=== PATIENT | female | born 1935 | race Caucasian/White ===

== ENCOUNTER 2018-03-01 01:48 | Inpatient (IN) | payer OTHER, BC ==
--- NOTE | 2018-03-01 02:30 | PDOC ---
History of Present Illness - General History Source: Patient, Family Exam Limitations: No Limitations - History of Present Illness Initial Comments: 03/01/18 03:31 Patient is an 82 year old female with a significant past medical history of Osteoporosis, scoliosis, HTN, Hypothyroidism, Diabetes, who presents to the ED with complaints of right ankle pain, s/p fall that occurred just prior to ED arrival. Patient reports walking down the steps in her home when she twisted her foot on the step causing her to lose her balance and fall landing on the last step followed by the floor. She reports experiencing associated left knee pain secondary to fall. Patient reports currently experiencing ache from her left ankle but state pain does increase if she attempts to move it in any way. Denies chest pain, Sob. Denies nausea, vomiting. Denies fevers, chills. Denies head trauma, change in vision. Denies any other symptoms. Allergies: None Social history: Lives with . No alcohol. No illicit drugs. Surgical history: None PMD: Dr. Hess <Talon Solomon - Last Filed: 03/01/18 03:31> <Arianna Soriano - Last Filed: 03/01/18 06:16> - General Chief Complaint: Injury Stated Complaint: ANKLE PAIN Time Seen by Provider: 03/01/18 02:12 Past History <Talon Solomon - Last Filed: 03/01/18 03:31> - Past Medical History COPD: No Diabetes: Yes HTN: Yes Thyroid Disease: Yes (Hyperthyrodism) - Immunization History Immunization Up to Date: Yes - Suicide/Smoking/Psychosocial Hx Smoking History: Former smoker Have you smoked in the past 12 months: No If you are a former smoker, when did you quit?: 33 years ago Information on smoking cessation initiated: No Hx Alcohol Use: Yes (Socially) Drug/Substance Use Hx: No <Arianna Soriano - Last Filed: 03/01/18 06:16> - Past Medical History Allergies/Adverse Reactions: Allergies Allergy/AdvReac Type Severity Reaction Status Date / Time No Known Allergies Allergy Verified 03/01/18 02:30 Home Medications: Ambulatory Orders Atorvastatin Ca [Lipitor] 20 mg PO HS 03/01/18 B12/Levomefolate Calcium/B-6 [Folbic Rf Tablet] 1 each PO DAILY 03/01/18 Cholecalciferol (Vitamin D3) [Vitamin D3 -] 1,000 unit PO DAILY 03/01/18 Levothyroxine [Synthroid -] 112 mcg PO DAILY 03/01/18 Losartan Potassium [Cozaar] 25 mg PO DAILY 03/01/18 Metoprolol Succinate [Toprol Xl -] 50 mg PO DAILY 03/01/18 Home-3/Dha/Epa/Fish Oil [Fish Oil 500 mg Softgel] 1 each PO DAILY 03/01/18 Pantoprazole Sodium [Protonix] 40 mg PO DAILY 03/01/18 Sitagliptin Phosphate [Januvia] 100 mg PO DAILY 03/01/18 Review of Systems - Review of Systems Able to Perform ROS?: Yes Comments:: 03/01/18 03:31 GENERAL/CONSTITUTIONAL: No fever or chills. No weakness. HEAD, EYES, EARS, NOSE AND THROAT: No change in vision. No ear pain or discharge. No sore throat. CARDIOVASCULAR: No chest pain or shortness of breath. RESPIRATORY: No cough, wheezing, or hemoptysis. GASTROINTESTINAL: No nausea, vomiting, diarrhea or constipation. GENITOURINARY: No dysuria, frequency, or change in urination. MUSCULOSKELETAL: +Right ankle pain. +left knee pain. No neck or back pain. SKIN: No rash NEUROLOGIC: No headache, vertigo, loss of consciousness, or change in strength/ sensation. ENDOCRINE: No increased thirst. No abnormal weight change. HEMATOLOGIC/LYMPHATIC: No anemia, easy bleeding, or history of blood clots. ALLERGIC/IMMUNOLOGIC: No hives or skin allergy. <Talon Solomon - Last Filed: 03/01/18 03:31> *Physical Exam - Vital Signs Last Vital Signs Temp Pulse Resp BP Pulse Ox 97.8 F 90 16 157/80 95 03/01/18 01:59 03/01/18 01:59 03/01/18 01:59 03/01/18 01:59 03/01/18 01:59 - Physical Exam Comments: 03/01/18 03:31 GENERAL: Awake, alert, and fully oriented, in no acute distress HEAD: No signs of trauma EYES: PERRLA, EOMI, sclera anicteric, conjunctiva clear ENT: Auricles normal inspection, hearing grossly normal, nares patent, oropharynx clear without exudates. Moist mucosa NECK: Normal ROM, supple, no lymphadenopathy, JVD, or masses LUNGS: Breath sounds equal, clear to auscultation bilaterally. No wheezes, and no crackles HEART: Regular rate and rhythm, normal S1 and S2, no murmurs, rubs or gallops ABDOMEN: Soft, nontender, normoactive bowel sounds. No guarding, no rebound. No masses EXTREMITIES: +Distal right tib fib swelling,bruising with obvious deformity. + Right leg distal pulses intact. Normal range of motion, no edema. No clubbing or cyanosis. No cords, erythema, or tenderness NEUROLOGICAL: Cranial nerves II through XII grossly intact. Normal speech, normal gait SKIN: Warm, Dry, normal turgor, no rashes or lesions noted. <Talon Solomon - Last Filed: 03/01/18 03:31> - Vital Signs Last Vital Signs Temp Pulse Resp BP Pulse Ox 97.8 F 90 16 157/80 95 03/01/18 01:59 03/01/18 01:59 03/01/18 01:59 03/01/18 01:59 03/01/18 01:59 <Arianna Soriano - Last Filed: 03/01/18 06:16> ED Treatment Course - Medications Given in the ED: ED Medications Discontinued Medications Generic Name Dose Route Start Last Admin Trade Name Freq PRN Reason Stop Dose Admin Oxycodone/Acetaminophen 2 combo 03/01/18 02:53 03/01/18 03:02 Percocet 5/325 - PO 03/01/18 02:54 2 combo ONCE ONE Administration <Talon Solomon - Last Filed: 03/01/18 03:31> - LABORATORY CBC & Chemistry Diagram: 03/01/18 04:14 03/01/18 04:14 <Arianna Soriano - Last Filed: 03/01/18 06:16> Medical Decision Making - Medical Decision Making 03/01/18 05:18 Pt slipped on the 2nd to last step in her home, and she twisted her right ankle and fell onto her left knee. Pt has comminuted right ankle tib/fib distal aspect that will require ORIF. Pt has a swollen left knee, byt XR of knee is normal. Preop labs done and ekg completed. Pt will be admitted to her PMD [facility]. 03/01/18 06:15 Dr. Wetzel is covering Dr. Hess, and Hospitalists are covering Dr. Wetzel. Pt will go to med surg floor. I placd a consult for ortho construction project manager to see the patient. <Arianna Soriano - Last Filed: 03/01/18 06:16> *DC/Admit/Observation/Transfer - Attestations Scribe Attestion: 03/01/18 03:32 Documentation prepared by Talon Solomon, acting as certified medical records coder for Arianna Soriano MD/DO. <Talon Solomon - Last Filed: 03/01/18 03:31> - Discharge Dispostion Admit: Yes <Arianna Soriano - Last Filed: 03/01/18 06:16> Diagnosis at time of Disposition: Nondisplaced comminuted fracture of shaft of right fibula, Nondisplaced comminuted fracture of shaft of left tibia - Discharge Dispostion Condition at time of disposition: Guarded
[2018-03-01 02:55] VITALS: BMI 24.5
[2018-03-01 04:25] LABS: BASO % 0.4 % (0-2.0); EOS % 0.2 % (0-4.5); HEMATOCRIT 42.2 % (32.4-45.2); HEMOGLOBIN 14.5 GM/dL (10.7-15.3); LYMPH % 6.6 % (8-40); MCH 31.3 pg (25.7-33.7); MCHC 34.3 g/dl (32.0-36.0); MEAN CELL VOLUME 91.3 fl (80-96); MEAN PLT VOLUME 7.7 fl (7.5-11.1); MONO % 4.6 % (3.8-10.2); NEUT % 88.2 % (42.8-82.8); PLATELET COUNT 229 K/MM3 (134-434); RBC 4.62 M/mm3 (3.60-5.2); RDW 12.9 % (11.6-15.6); WHITE BLOOD COUNT 12.9 K/mm3 (4.0-10.0)
[2018-03-01 04:35] LABS: INR 0.97 (0.82-1.09)
[2018-03-01 04:46] LABS: ALBUMIN 4.5 g/dl (3.4-5.0); ALK PHOS 73 U/L (45-117); ANION GAP 8 (8-16); BILIRUBIN,TOTAL 0.4 mg/dL (0.2-1.0); BLOOD UREA NITROGEN 18 mg/dL (7-18); CALCIUM 9.7 mg/dL (8.5-10.1); CHLORIDE 106 mmol/L (98-107); CO2 28 mmol/L (21-32); CREATININE 0.8 mg/dL (0.55-1.02); GLUCOSE,RANDOM 191 mg/dL (74-106); POTASSIUM 4.2 mmol/L (3.5-5.1); SGOT/AST 18 U/L (15-37); SGPT/ALT 19 U/L (12-78); SODIUM 142 mmol/L (136-145); TOT PROT 7.8 g/dl (6.4-8.2)
--- NOTE | 2018-03-01 07:51 | HP ---
CHIEF COMPLAINT: RIGHT ankle and LEFT knee pain PCP: Dr. Hess HISTORY OF PRESENT ILLNESS: 82 year-old female with a significant PMH of HTN, NIDDM, hypothyroidism, osteoporosis, and scoliosis. Patient reports walking down the steps in her home when she twisted her foot on the step causing her to lose her balance and fall, landing on the last step and then the floor. She reports left knee pain secondary to fall. She also reports aching in her right ankle, worse with movement. Patient did not hit her head, no LOC. Recent Travel: No PAST MEDICAL HISTORY: Hypertension NIDDM Hypothyroidism Osteoporosis Scoliosis PAST SURGICAL HISTORY: None reported Social History: Smoking: no Alcohol: no Drugs: no Family History: Allergies No Known Allergies Allergy (Verified 03/01/18 02:30) HOME MEDICATIONS: Home Medications Medication Instructions Recorded Atorvastatin Ca [Lipitor] 20 mg PO HS 03/01/18 B12/Levomefolate Calcium/B-6 1 each PO DAILY 03/01/18 [Folbic Rf Tablet] Cholecalciferol (Vitamin D3) 1,000 unit PO DAILY 03/01/18 [Vitamin D3 -] Levothyroxine [Synthroid -] 112 mcg PO DAILY 03/01/18 Losartan Potassium [Cozaar] 25 mg PO DAILY 03/01/18 Metoprolol Succinate [Toprol Xl -] 50 mg PO DAILY 03/01/18 [place]-3/Dha/Epa/Fish Oil [Fish Oil 1 each PO DAILY 03/01/18 500 mg Softgel] Pantoprazole Sodium [Protonix] 40 mg PO DAILY 03/01/18 Sitagliptin Phosphate [Januvia] 100 mg PO DAILY 03/01/18 REVIEW OF SYSTEMS CONSTITUTIONAL: Absent: fever, chills, diaphoresis, generalized weakness, malaise, loss of appetite, weight change HEENT: Absent: rhinorrhea, nasal congestion, throat pain, throat swelling, difficulty swallowing, mouth swelling, ear pain, eye pain, visual changes CARDIOVASCULAR: Absent: chest pain, syncope, palpitations, irregular heart rate, lightheadedness , peripheral edema RESPIRATORY: Absent: cough, shortness of breath, dyspnea with exertion, orthopnea, wheezing, stridor, hemoptysis GASTROINTESTINAL: Absent: abdominal pain, abdominal distension, nausea, vomiting, diarrhea, constipation, melena, hematochezia GENITOURINARY: Absent: dysuria, frequency, urgency, hesitancy, hematuria, flank pain, genital pain MUSCULOSKELETAL: +right leg pain, left knee pain Absent: myalgia, arthralgia, joint swelling, back pain, neck pain SKIN: Absent: rash, itching, pallor HEMATOLOGIC/IMMUNOLOGIC: Absent: easy bleeding, easy bruising, lymphadenopathy, frequent infections ENDOCRINE: Absent: unexplained weight gain, unexplained weight loss, heat intolerance, cold intolerance NEUROLOGIC: Absent: headache, focal weakness or paresthesias, dizziness, unsteady gait, seizure, mental status changes, bladder or bowel incontinence PSYCHIATRIC: Absent: anxiety, depression, suicidal or homicidal ideation, hallucinations. PHYSICAL EXAMINATION Vital Signs - 24 hr 03/01/18 03/01/18 03/01/18 01:59 05:43 05:55 Temperature 97.8 F 98.1 F Pulse Rate 90 92 H Respiratory 16 18 18 Rate Blood Pressure 157/80 148/70 O2 Sat by Pulse 95 94 L Oximetry (%) GENERAL: Awake, alert, and fully oriented, in no acute distress. HEAD: Normal with no signs of trauma. EYES: Pupils equal, round and reactive to light, extraocular movements intact, sclera anicteric, conjunctiva clear. No lid lag. EARS, NOSE, THROAT: Ears normal, nares patent, oropharynx clear without exudates. Moist mucous membranes. NECK: Normal range of motion, supple without lymphadenopathy, JVD, or masses. LUNGS: Breath sounds equal, clear to auscultation bilaterally. No wheezes, and no crackles. No accessory muscle use. HEART: Regular rate and rhythm, normal S1 and S2 ABDOMEN: Soft, nontender, not distended, normoactive bowel sounds, no guarding, no rebound, no masses. UPPER EXTREMITIES: 2+ pulses, warm, well-perfused. No cyanosis. No clubbing. No peripheral edema. LOWER EXTREMITIES: RIGHT LEG in soft case from toes to below knee; toes are pink , warm, 5/5 sensation; LEFT KNEE: mild tenderness and very light ecchymosis over the patella, mild swelling NEUROLOGICAL: Cranial nerves II-XII intact. Normal speech. PSYCHIATRIC: Cooperative. Good eye contact. Appropriate mood and affect. SKIN: Warm, dry, normal turgor Laboratory Results - last 24 hr 03/01/18 03/01/18 03/01/18 04:14 04:14 04:14 WBC 12.9 H RBC 4.62 Hgb 14.5 Hct 42.2 MCV 91.3 MCH 31.3 MCHC 34.3 RDW 12.9 Plt Count 229 MPV 7.7 Neutrophils % 88.2 H Lymphocytes % 6.6 L Monocytes % 4.6 Eosinophils % 0.2 Basophils % 0.4 PT with INR 11.00 INR 0.97 PTT (Actin FS) 29.7 Sodium Potassium Chloride Carbon Dioxide Anion Gap BUN Creatinine Creat Clearance w eGFR POC Glucometer Random Glucose Calcium Total Bilirubin AST ALT Alkaline Phosphatase Total Protein Albumin Blood Type 03/01/18 03/01/18 03/01/18 04:14 04:14 06:02 WBC RBC Hgb Hct MCV MCH MCHC RDW Plt Count MPV Neutrophils % Lymphocytes % Monocytes % Eosinophils % Basophils % PT with INR INR PTT (Actin FS) Sodium 142 Potassium 4.2 Chloride 106 Carbon Dioxide 28 Anion Gap 8 BUN 18 Creatinine 0.8 Creat Clearance w eGFR > 60 POC Glucometer 172 Random Glucose 191 H Calcium 9.7 Total Bilirubin 0.4 AST 18 ALT 19 Alkaline Phosphatase 73 Total Protein 7.8 Albumin 4.5 Blood Type O POSITIVE Imaging 03/01 Xray RIGHT leg tib/fib: fractures of the distal fibula and tibia with swelling 03/01 Xray LEFT knee: questionable patellar fracture ASSESSMENT/PLAN: 82 year-old female with a significant PMH of HTN, HLD, NIDDM, hypothyroidism, osteoporosis, and scoliosis. Admitted for right ankle fracture and questionable left patellar fracture. Right ankle fracture r/o left patellar fracture --ortho evaluation pending --oxycodone, Tylenol PRN Hypertension --continue losartan, Toprol XL Hyperlipidemia --continue Lipitor NIDDM --Novolog sliding scale coverage Hypothyroidism --continue levothyroxine FEN Fluids: NS @ 83mL/hr Electrolytes: replete as indicated Nutrition: NPO DVT prophylaxis: defer today pending surgical evaluation Physical therapy evaluation requested Dispo: continues to require inpatient care. Full code. Visit type - Emergency Visit Emergency Visit: Yes ED Registration Date: 03/01/18 Care time: The patient presented to the Emergency Department on the above date and was hospitalized for further evaluation of their emergent condition. - New Patient This patient is new to me today: Yes Date on this admission: 03/01/18 - Critical Care Critical Care patient: No Hospitalist Screening - Colonoscopy Questionnaire Colonoscopy Questionnaire: Colonoscopy Questionnaire - Patient: 50 - 75 years old and never had a screening colonoscopy: Unknown History of colon or rectal polyps, or CA: No History of IBD, Crohn's disease or UC: No History of abdominal radiation therapy as a child: No - Relative: 1 with colon or rectal CA, or polyps at age 60 or younger: Unknown Colon or rectal CA diagnosed at age 45 or younger: Unknown Multiple relatives with colon or rectal CA: Unknown - Outcome: Screening Result: Negative Screen
[2018-03-01] MEDS ORDERED: LIDOCAINE HCL 2% (20ML MULTI-DOSE VIAL) NR ONE (08:15)
[2018-03-01] MEDS ORDERED: morphine SULFATE 4 MG/ML VIAL IVPUSH ONE (08:45)
--- NOTE | 2018-03-01 09:25 | CONSULT ---
Consult Consult Specialty:: orthopedics Reason for Consultation:: Right ankle fracture/dislocation - History of Present Illness History of Present Illness: 82y/o female c/o right ankle pain s/p fall last night. She was walking on a set of stairs when she fell and immediately had pain. The pain is worse with movement and better with rest. She cannot bear weight. She came to the ER and was found to have a fracture/dislocation of the right ankle and was admitted to the floor. She has been in a splint. She denies any numbness or tingling. There are no other associated, aggravating or relieving factors. - History Source History Provided By: Patient, Medical Record Limitations to Obtaining History: No Limitations - Alcohol/Substance Use Hx Alcohol Use: Yes (Socially) - Smoking History Smoking history: Former smoker Have you smoked in the past 12 months: No If you are a former smoker, when did you quit?: 33 years ago Home Medications - Allergies Allergies/Adverse Reactions: Allergies Allergy/AdvReac Type Severity Reaction Status Date / Time No Known Allergies Allergy Verified 03/01/18 02:30 - Home Medications Home Medications: Ambulatory Orders Atorvastatin Ca [Lipitor] 20 mg PO HS 03/01/18 B12/Levomefolate Calcium/B-6 [Folbic Rf Tablet] 1 each PO DAILY 03/01/18 Cholecalciferol (Vitamin D3) [Vitamin D -] 1,000 unit PO DAILY 03/01/18 Levothyroxine [Synthroid -] 112 mcg PO DAILY 03/01/18 Losartan Potassium [Cozaar] 25 mg PO DAILY 03/01/18 Metoprolol Succinate [Toprol XL -] 50 mg PO DAILY 03/01/18 [place]-3/Dha/Epa/Fish Oil [Fish Oil 500 mg Softgel] 1 each PO DAILY 03/01/18 Pantoprazole Sodium [Protonix] 40 mg PO DAILY 03/01/18 Sitagliptin Phosphate [Januvia] 100 mg PO DAILY 03/01/18 Acetaminophen [Tylenol .Regular Strength -] 650 mg PO Q6H PRN tablet 03/05/18 Docusate Sodium [Colace -] 100 mg PO BID capsule 03/05/18 Enoxaparin [Lovenox -] 40 mg SQ DAILY disp.syrin 03/05/18 Polyethylene Glycol 3350 [Miralax 119 gm Btl -] 17 gm PO BID bottle 03/05/18 oxyCODONE HCL [Roxicodone -] 5 mg PO Q4H PRN tablet MDD 60mg 03/05/18 Review of Systems - Review of Systems Constitutional: reports: No Symptoms Eyes: reports: No Symptoms HENT: reports: No Symptoms Neck: reports: No Symptoms Cardiovascular: reports: No Symptoms Respiratory: reports: No Symptoms Gastrointestinal: reports: No Symptoms Genitourinary: reports: No Symptoms Breasts: reports: No Symptoms Reported Musculoskeletal: reports: Extremity Pain Integumentary: reports: Bruising Neurological: reports: No Symptoms Endocrine: reports: No Symptoms Hematology/Lymphatic: reports: No Symptoms Psychiatric: reports: No Symptoms Physical Exam Vital Signs: Vital Signs Temperature 98.1 F 03/01/18 05:43 Pulse Rate 92 H 03/01/18 05:43 Respiratory Rate 18 03/01/18 05:55 Blood Pressure 148/70 03/01/18 05:43 O2 Sat by Pulse Oximetry (%) 94 L 03/01/18 05:55 Constitutional: Yes: Well Nourished, No Distress, Calm Musculoskeletal: Yes: Other (Right ankle: No open wounds. Moderate edema and ecchymosis of the right ankle. Diffuse tenderness along the medial and lateral malleouli. Obvious deformity. Pain with motion. NVID. Compartments soft.) Labs: CBC, BMP 03/01/18 04:14 03/01/18 04:14 Imaging - Results X-ray: Report Reviewed, Image Reviewed (Right ankle fx/dislocation) Assessment/Plan #1 right ankle fracture/dislocation -Discussed today's findings and treatment options with the patient and family. I have recommended a closed reduction of the right ankle. The ankle is significantly displaced at this time. We also discussed operative treatment with a closed reduction and external fixation in the OR but will proceed at bedside and attempt a closed reduction first. If unsucessful will proceed to OR. Procedure, Right ankle closed reduction: Using sterile technique 6cc of lidocaine was injected into the medial and lateral fracture sites via hematoma block. The leg was then held in traction with the knee flexed for approximately 5 minutes. A manipulation was the performed and reduction of the ankle joint was achieved. The ankle joint was found to be very unstable and easily dislocated with minimal movement. The ankle was held reduced and a short leg cast was placed and molded holding the fracture reduced. The cast was then bi- valved and over-wrapped with a SEVERO bandage. The patient tolerated the procedure well. This procedure was performed under the direct supervision of Dr. Eriberto Pinedo. -Elevation discussed -NV exam intact after reduction -Follow up with Dr. Pinedo within 1 week
[2018-03-01] MEDS: LEVOTHYROXINE NA 112 MCG TABLET (FP) PO SCH (11:20)
[2018-03-01] MEDS: PANTOPRAZOLE 40 MG TABLET (FP) PO SCH (11:21)
[2018-03-01] MEDS: LOSARTAN POTASSIUM 25 MG TABLET PO SCH (11:21)
[2018-03-01] MEDS: SODIUM CHLORIDE 1,000 ML IV SCH ×2 (11:43→21:34)
[2018-03-01] MEDS: INSULIN SLIDING SCALE (NOVOLOG) 1 VIAL SQ SCH ×3 (11:46→21:33)
--- NOTE | 2018-03-01 12:11 | EKG ---
Test Reason : Blood Pressure : / mmHG Vent. Rate : 090 BPM Atrial Rate : 090 BPM P-R Int : 182 ms QRS Dur : 072 ms QT Int : 376 ms P-R-T Axes : 073 046 036 degrees QTc Int : 459 ms NORMAL SINUS RHYTHM POSSIBLE LEFT ATRIAL ENLARGEMENT BORDERLINE ECG WHEN COMPARED WITH ECG OF 08-DEC-2006 07:44, NO SIGNIFICANT CHANGE WAS FOUND Confirmed by MERCEDES FLORES MD ([id number]) on 03/01/2018 12:11:29 PM Referred By: Confirmed By:MERCEDES FLORES MD
[2018-03-01] MEDS: oxyCODONE HCL 5 MG TABLET PO PRN ×2 (12:32→18:28)
[2018-03-01] MEDS: ACETAMINOPHEN 325 MG TABLET (FP) PO PRN ×2 (12:34→18:29)
--- NOTE | 2018-03-01 12:44 | PDOC ---
Patient Follow-up (Call Back) - Post ED Follow - Up Condition at time of discharge: Guarded Reason for Call Back: Radiology (Pt currently admissted for ankle fx w/ ortho involved Radiology call this am to report possible patella fx I called nurse on 6S and informed her of xray report to inform medical team)
[2018-03-01] MEDS: ENOXAPARIN NA (PORCINE) 40 MG/0.4 ML DISP.SYRIN SQ SCH (14:45)
--- NOTE | 2018-03-01 18:02 | PN ---
Progress Note (short form) - Note Progress Note: Pt noted to have small longitudinal patella fracture. Will heal with nonop care. Can weight bear for transfers. No need for bracing. Plan for ankle is ORIF in 2 weeks. Ok to discharge to SNF. Plan to follow up 1 week to check swelling.
[2018-03-01] MEDS ORDERED: INSULIN (NOVOLOG) ASPART 100 UNITS/ML 10ML VIAL ONE (21:13)
[2018-03-01] MEDS: ATORVASTATIN CA 20 MG TABLET (FP) PO SCH (21:31)
[2018-03-02] MEDS: oxyCODONE HCL 5 MG TABLET PO PRN ×2 (00:04→22:48)
[2018-03-02] MEDS: ACETAMINOPHEN 325 MG TABLET (FP) PO PRN ×3 (00:20→22:48)
[2018-03-02] MEDS: LEVOTHYROXINE NA 112 MCG TABLET (FP) PO SCH (06:10)
[2018-03-02] MEDS: INSULIN SLIDING SCALE (NOVOLOG) 1 VIAL SQ SCH ×4 (06:10→21:32)
[2018-03-02] MEDS: SODIUM CHLORIDE 1,000 ML IV SCH (07:45)
[2018-03-02 08:38] LABS: BASO % 0.2 % (0-2.0); EOS % 0.2 % (0-4.5); HEMATOCRIT 37.5 % (32.4-45.2); LYMPH % 6.6 % (8-40); MCH 31.2 pg (25.7-33.7); MCHC 34.7 g/dl (32.0-36.0); MEAN CELL VOLUME 89.9 fl (80-96); MONO % 6.9 % (3.8-10.2); NEUT % 86.1 % (42.8-82.8); PLATELET COUNT 210 K/MM3 (134-434); RBC 4.18 M/mm3 (3.60-5.2); RDW 12.8 % (11.6-15.6); WHITE BLOOD COUNT 13.2 K/mm3 (4.0-10.0)
[2018-03-02 09:10] LABS: ALBUMIN 3.7 g/dl (3.4-5.0); ANION GAP 10 (8-16); BLOOD UREA NITROGEN 7 mg/dL (7-18); CALCIUM 7.8 mg/dL (8.5-10.1); CHLORIDE 100 mmol/L (98-107); CO2 25 mmol/L (21-32); GLUCOSE,RANDOM 144 mg/dL (74-106); MAGNESIUM 1.8 mg/dL (1.8-2.4); POTASSIUM 3.4 mmol/L (3.5-5.1); SODIUM 135 mmol/L (136-145)
[2018-03-02 09:13] LABS: ALK PHOS 58 U/L (45-117); BILIRUBIN,TOTAL 0.7 mg/dL (0.2-1.0); CREATININE 0.5 mg/dL (0.55-1.02); SGOT/AST 21 U/L (15-37); SGPT/ALT 17 U/L (12-78); TOT PROT 6.8 g/dl (6.4-8.2)
[2018-03-02] MEDS: PANTOPRAZOLE 40 MG TABLET (FP) PO SCH (09:44)
[2018-03-02] MEDS: LOSARTAN POTASSIUM 25 MG TABLET PO SCH (09:44)
[2018-03-02] MEDS: ENOXAPARIN NA (PORCINE) 40 MG/0.4 ML DISP.SYRIN SQ SCH (09:45)
[2018-03-02] MEDS ORDERED: INSULIN (NOVOLOG) ASPART 100 UNITS/ML 10ML VIAL ONE (11:27)
[2018-03-02] MEDS: DOCUSATE SODIUM 100 MG CAPSULE (FP) PO SCH ×2 (12:09→21:31)
[2018-03-02] MEDS: POLYETHYLENE GLYCOL 3350 119 GM BTL PO SCH ×2 (12:09→21:32)
[2018-03-02] MEDS: ONDANSETRON 4 MG/2 ML VIAL IVPUSH PRN ×2 (12:09→18:18)
[2018-03-02] MEDS ORDERED: POTASSIUM CHLORIDE TABS 20 MEQ TABLET.ER (FP) PO ONE (12:17)
--- NOTE | 2018-03-02 12:55 | PN ---
Progress Note, Physician Chief Complaint: Mrs Mullins says she was having shortness of breath this morning but that has resolved. Per patient and daughter these episodes are chronic. Also complains of nausea that was relieved with zofran. Complains of constipation as well. No chest pain. - Current Medication List Current Medications: Active Medications Acetaminophen (Tylenol -) 650 mg PO Q6H PRN PRN Reason: PAIN LEVEL 1 - 3 Last Admin: 03/02/18 11:33 Dose: 650 mg Atorvastatin Calcium (Lipitor -) 20 mg PO HS [facility] Last Admin: 03/01/18 21:31 Dose: 20 mg Docusate Sodium (Colace -) 100 mg PO BID [facility] Last Admin: 03/02/18 12:09 Dose: 100 mg Enoxaparin Sodium (Lovenox -) 40 mg SQ DAILY [facility] Last Admin: 03/02/18 09:45 Dose: 40 mg Sodium Chloride (Normal Saline -) 1,000 mls @ 83 mls/hr IV ASDIR [facility] Last Admin: 03/02/18 07:45 Dose: 83 mls/hr Insulin Aspart (Novolog Vial Sliding Scale -) 1 vial SQ ACHS [facility] PRN Reason: Protocol Last Admin: 03/02/18 11:30 Dose: 2 units Levothyroxine Sodium (Synthroid -) 112 mcg PO DAILY@0700 [facility] Last Admin: 03/02/18 06:10 Dose: 112 mcg Losartan Potassium (Cozaar -) 25 mg PO DAILY [facility] Last Admin: 03/02/18 09:44 Dose: 25 mg Metoprolol Succinate (Toprol Xl -) 50 mg PO DAILY [facility] Last Admin: 03/02/18 09:55 Dose: 50 mg Ondansetron HCl (Zofran Injection) 4 mg IVPUSH Q6H PRN PRN Reason: NAUSEA Last Admin: 03/02/18 12:09 Dose: 4 mg Oxycodone HCl (Roxicodone -) 5 mg PO Q4H PRN PRN Reason: PAIN LEVEL 4 - 6 Last Admin: 03/02/18 00:04 Dose: 5 mg Pantoprazole Sodium (Protonix -) 40 mg PO DAILY [facility] Last Admin: 03/02/18 09:44 Dose: 40 mg Polyethylene Glycol (Miralax (For Daily Use) -) 17 gm PO BID [facility] Last Admin: 03/02/18 12:09 Dose: 17 gm - Objective Vital Signs: Vital Signs Temperature 36.6 C 03/02/18 06:00 Pulse Rate 85 03/02/18 06:00 Respiratory Rate 20 03/02/18 09:00 Blood Pressure 162/83 03/02/18 06:00 O2 Sat by Pulse Oximetry (%) 94 L 03/02/18 09:00 Constitutional: Yes: Well Nourished, No Distress, Calm Cardiovascular: Yes: Regular Rate and Rhythm. No: Gallop, Murmur, Rub Respiratory: Yes: Regular, Rhonchi (bibasilar). No: CTA Bilaterally, Rales, Wheezes Gastrointestinal: Yes: Normal Bowel Sounds, Soft. No: Distention, Tenderness Extremities: Yes: Other (RLE in cast) Edema: No Labs: CBC, BMP 03/02/18 07:48 03/02/18 07:48 INR, PTT INR 0.97 (0.82-1.09) 03/01/18 04:14 Problem List - Problems (1) Nondisplaced comminuted fracture of shaft of right fibula Assessment/Plan: -ortho following -no urgent need for surgery -plan for ORIF in 2 weeks Code(s): S82.454A - NONDISP COMMINUTED FRACTURE OF SHAFT OF RIGHT FIBULA, INIT Qualifiers: Encounter type: initial encounter Fracture type: closed Qualified Code(s) : S82.454A - Nondisplaced comminuted fracture of shaft of right fibula, initial encounter for closed fracture (2) Left patella fracture Assessment/Plan: -no need for surgical intervention Code(s): S82.002A - UNSP FRACTURE OF LEFT PATELLA, INIT FOR CLOS FX Qualifiers: Encounter type: initial encounter Fracture type: closed Fracture morphology: longitudinal Fracture alignment: nondisplaced Qualified Code(s) : S82.025A - Nondisplaced longitudinal fracture of left patella, initial encounter for closed fracture (3) HTN (hypertension) Assessment/Plan: -continue toprol xl and cozaar -slightly elevated -will stop IVF Code(s): I10 - ESSENTIAL (PRIMARY) HYPERTENSION (4) HLD (hyperlipidemia) Assessment/Plan: -continue statin Code(s): E78.5 - HYPERLIPIDEMIA, UNSPECIFIED (5) Hypothyroid Assessment/Plan: -continue synthroid Code(s): E03.9 - HYPOTHYROIDISM, UNSPECIFIED (6) Nausea Assessment/Plan: -prn zofran -suspect secondary to pain medications Code(s): R11.0 - NAUSEA (7) Constipation Assessment/Plan: -start miralax and colace Code(s): K59.00 - CONSTIPATION, UNSPECIFIED (8) Shortness of breath Assessment/Plan: -encouraged I/S -will also stop IVF to prevent fluid overload -monitor -because having SOB and plan for surgery, will place pulmonary consult in the am for optimization Code(s): R06.02 - SHORTNESS OF BREATH
[2018-03-02] MEDS: ATORVASTATIN CA 20 MG TABLET (FP) PO SCH (21:31)
[2018-03-03] MEDS: LEVOTHYROXINE NA 112 MCG TABLET (FP) PO SCH (06:15)
[2018-03-03] MEDS: INSULIN SLIDING SCALE (NOVOLOG) 1 VIAL SQ SCH ×4 (06:15→22:03)
[2018-03-03 07:35] LABS: BASO % 0.4 % (0-2.0); EOS % 0.3 % (0-4.5); HEMOGLOBIN 13.1 GM/dL (10.7-15.3); LYMPH % 8.5 % (8-40); MCHC 34.5 g/dl (32.0-36.0); MEAN CELL VOLUME 89.8 fl (80-96); MEAN PLT VOLUME 7.7 fl (7.5-11.1); MONO % 9.1 % (3.8-10.2); NEUT % 81.7 % (42.8-82.8); PLATELET COUNT 195 K/MM3 (134-434); RBC 4.24 M/mm3 (3.60-5.2); RDW 12.9 % (11.6-15.6); WHITE BLOOD COUNT 12.1 K/mm3 (4.0-10.0)
[2018-03-03 08:08] LABS: ANION GAP 12 (8-16); BLOOD UREA NITROGEN 7 mg/dL (7-18); CALCIUM 7.9 mg/dL (8.5-10.1); CHLORIDE 98 mmol/L (98-107); CO2 24 mmol/L (21-32); CREATININE 0.6 mg/dL (0.55-1.02); GLUCOSE,RANDOM 142 mg/dL (74-106); MAGNESIUM 1.9 mg/dL (1.8-2.4); PHOSPHOROUS 1.4 mg/dL (2.5-4.9); POTASSIUM 3.5 mmol/L (3.5-5.1); SODIUM 134 mmol/L (136-145)
[2018-03-03] MEDS: ENOXAPARIN NA (PORCINE) 40 MG/0.4 ML DISP.SYRIN SQ SCH (09:36)
[2018-03-03] MEDS: oxyCODONE HCL 5 MG TABLET PO PRN ×2 (09:36→21:43)
[2018-03-03] MEDS: POLYETHYLENE GLYCOL 3350 119 GM BTL PO SCH ×2 (09:38→22:03)
[2018-03-03] MEDS: LOSARTAN POTASSIUM 25 MG TABLET PO SCH (09:38)
[2018-03-03] MEDS: PANTOPRAZOLE 40 MG TABLET (FP) PO SCH (09:38)
[2018-03-03] MEDS: DOCUSATE SODIUM 100 MG CAPSULE (FP) PO SCH ×2 (09:38→21:43)
--- NOTE | 2018-03-03 12:33 | PN ---
Progress Note, Physician Chief Complaint: Mrs Mullins says her pain is controlled today. Still with chronic shortness of breath at times but currently doing well. No cp or n/v. - Current Medication List Current Medications: Active Medications Acetaminophen (Tylenol -) 650 mg PO Q6H PRN PRN Reason: PAIN LEVEL 1 - 3 Last Admin: 03/02/18 22:48 Dose: 650 mg Atorvastatin Calcium (Lipitor -) 20 mg PO HS [facility] Last Admin: 03/02/18 21:31 Dose: 20 mg Docusate Sodium (Colace -) 100 mg PO BID [facility] Last Admin: 03/03/18 09:38 Dose: 100 mg Enoxaparin Sodium (Lovenox -) 40 mg SQ DAILY [facility] Last Admin: 03/03/18 09:36 Dose: 40 mg Potassium Phosphate 16 mm/ (Sodium Chloride) 255.3333 mls @ 62.5 mls/hr IVPB ONCE ONE Stop: 03/03/18 16:35 Insulin Aspart (Novolog Vial Sliding Scale -) 1 vial SQ ACHS [facility] PRN Reason: Protocol Last Admin: 03/03/18 11:40 Dose: 2 units Levothyroxine Sodium (Synthroid -) 112 mcg PO DAILY@0700 [facility] Last Admin: 03/03/18 06:15 Dose: 112 mcg Losartan Potassium (Cozaar -) 25 mg PO DAILY [facility] Last Admin: 03/03/18 09:38 Dose: 25 mg Metoprolol Succinate (Toprol Xl -) 50 mg PO DAILY [facility] Last Admin: 03/03/18 09:38 Dose: 50 mg Ondansetron HCl (Zofran Injection) 4 mg IVPUSH Q6H PRN PRN Reason: NAUSEA Last Admin: 03/02/18 18:18 Dose: 4 mg Oxycodone HCl (Roxicodone -) 5 mg PO Q4H PRN PRN Reason: PAIN LEVEL 4 - 6 Last Admin: 03/03/18 09:36 Dose: 5 mg Pantoprazole Sodium (Protonix -) 40 mg PO DAILY [facility] Last Admin: 03/03/18 09:38 Dose: 40 mg Polyethylene Glycol (Miralax (For Daily Use) -) 17 gm PO BID [facility] Last Admin: 03/03/18 09:38 Dose: 17 gm Potassium Phos/Sodium Phos (Phos-Nak Packet -) 1 packet PO TID [facility] - Objective Vital Signs: Vital Signs Temperature 36.8 C 03/03/18 10:00 Pulse Rate 100 H 03/03/18 10:00 Respiratory Rate 20 03/03/18 10:00 Blood Pressure 140/92 03/03/18 10:00 O2 Sat by Pulse Oximetry (%) 94 L 03/02/18 21:00 Constitutional: Yes: Well Nourished, No Distress, Calm Cardiovascular: Yes: Regular Rate and Rhythm. No: Gallop, Murmur, Rub Respiratory: Yes: Regular, CTA Bilaterally. No: Rales, Rhonchi, Wheezes Gastrointestinal: Yes: Normal Bowel Sounds, Soft. No: Distention, Tenderness Extremities: Yes: Other (RLE in cast) Edema: No Labs: CBC, BMP 03/03/18 06:00 03/03/18 06:40 INR, PTT INR 0.97 (0.82-1.09) 03/01/18 04:14 Problem List - Problems (1) Nondisplaced comminuted fracture of shaft of right fibula Code(s): S82.454A - NONDISP COMMINUTED FRACTURE OF SHAFT OF RIGHT FIBULA, INIT Qualifiers: Encounter type: initial encounter Fracture type: closed Qualified Code(s) : S82.454A - Nondisplaced comminuted fracture of shaft of right fibula, initial encounter for closed fracture (2) Left patella fracture Code(s): S82.002A - UNSP FRACTURE OF LEFT PATELLA, INIT FOR CLOS FX Qualifiers: Encounter type: initial encounter Fracture type: closed Fracture morphology: longitudinal Fracture alignment: nondisplaced Qualified Code(s) : S82.025A - Nondisplaced longitudinal fracture of left patella, initial encounter for closed fracture (3) HTN (hypertension) Code(s): I10 - ESSENTIAL (PRIMARY) HYPERTENSION (4) HLD (hyperlipidemia) Code(s): E78.5 - HYPERLIPIDEMIA, UNSPECIFIED (5) Hypothyroid Code(s): E03.9 - HYPOTHYROIDISM, UNSPECIFIED (6) Nausea Code(s): R11.0 - NAUSEA (7) Constipation Code(s): K59.00 - CONSTIPATION, UNSPECIFIED (8) Shortness of breath Code(s): R06.02 - SHORTNESS OF BREATH Assessment/Plan (1) Nondisplaced comminuted fracture of shaft of right fibula Assessment/Plan: -ortho following -no urgent need for surgery -plan for ORIF in 2 weeks Code(s): S82.454A - NONDISP COMMINUTED FRACTURE OF SHAFT OF RIGHT FIBULA, INIT Qualifiers: Encounter type: initial encounter Fracture type: closed Qualified Code(s) : S82.454A - Nondisplaced comminuted fracture of shaft of right fibula, initial encounter for closed fracture (2) Left patella fracture Assessment/Plan: -no need for surgical intervention Code(s): S82.002A - UNSP FRACTURE OF LEFT PATELLA, INIT FOR CLOS FX Qualifiers: Encounter type: initial encounter Fracture type: closed Fracture morphology: longitudinal Fracture alignment: nondisplaced Qualified Code(s) : S82.025A - Nondisplaced longitudinal fracture of left patella, initial encounter for closed fracture (3) HTN (hypertension) Assessment/Plan: -continue toprol xl and cozaar -improved today Code(s): I10 - ESSENTIAL (PRIMARY) HYPERTENSION (4) HLD (hyperlipidemia) Assessment/Plan: -continue statin Code(s): E78.5 - HYPERLIPIDEMIA, UNSPECIFIED (5) Hypothyroid Assessment/Plan: -continue synthroid Code(s): E03.9 - HYPOTHYROIDISM, UNSPECIFIED (6) Nausea Assessment/Plan: -resolved Code(s): R11.0 - NAUSEA (7) Constipation Assessment/Plan: -continue miralax and colace Code(s): K59.00 - CONSTIPATION, UNSPECIFIED (8) Shortness of breath Assessment/Plan: -consult pulmonary for clearance in preparation of surgery in 2 weeks -encouraged I/S Code(s): R06.02 - SHORTNESS OF BREATH Dispo -plan for discharge tomorrow
[2018-03-03] MEDS ORDERED: POTASSIUM PHOSPHATE 16 MM in SODIUM CHLORIDE 250 ML IVPB ONE (13:00)
[2018-03-03] MEDS: NAPH,MB-DB/K PH,MBDB POWDER PACKET PO SCH ×2 (14:39→21:43)
--- NOTE | 2018-03-03 15:38 | PN ---
Progress Note (short form) - Note Progress Note: PULMONARY CONSULTATION DICTATED 03/03/18 IMP DYSPNEA SECONDARY TO SEVERE KYPHOSCOLIOSIS R ANKLE FX S/P MECHANICAL FALL HTN OSTEOPOROSIS DM PLAN O2 CHECK O2 SAT ON RA ABG F/U CHEST X-RAY INCENTIVE SPIROMETER DVT PROPHYLAXIS NO ABSOLUTE PULMONARY CONTRAINDICATION FOR SURGERY AT THIS TIME DR LASSITER Problem List - Problems (1) Scoliosis (and kyphoscoliosis), idiopathic Code(s): M41.20 - OTHER IDIOPATHIC SCOLIOSIS, SITE UNSPECIFIED (2) HLD (hyperlipidemia) Code(s): E78.5 - HYPERLIPIDEMIA, UNSPECIFIED (3) HTN (hypertension) Code(s): I10 - ESSENTIAL (PRIMARY) HYPERTENSION (4) Hypothyroid Code(s): E03.9 - HYPOTHYROIDISM, UNSPECIFIED (5) Nondisplaced comminuted fracture of shaft of left tibia Code(s): S82.255A - NONDISP COMMINUTED FRACTURE OF SHAFT OF LEFT TIBIA, INIT (6) Nondisplaced comminuted fracture of shaft of right fibula Code(s): S82.454A - NONDISP COMMINUTED FRACTURE OF SHAFT OF RIGHT FIBULA, INIT Qualifiers: Encounter type: initial encounter Fracture type: closed Qualified Code(s) : S82.454A - Nondisplaced comminuted fracture of shaft of right fibula, initial encounter for closed fracture (7) Shortness of breath Code(s): R06.02 - SHORTNESS OF BREATH
[2018-03-03 16:30] LABS: ARTERIAL BLD GAS O2 SATURATION 92.1 % (90-98.9); ARTERIAL BLOOD GAS BASE EXCESS 3.2 meq/l (-2-2); ARTERIAL BLOOD GAS PCO2 35.5 mmHg (35-45); ARTERIAL BLOOD GAS pH 7.48 (7.35-7.45)
[2018-03-03 16:31] LABS: ALLENS TEST POSITIVE
[2018-03-03] MEDS: ACETAMINOPHEN 325 MG TABLET (FP) PO PRN (16:49)
--- NOTE | 2018-03-03 17:01 | CONS ---
DATE OF CONSULTATION: 03/03/2018 PULMONARY CONSULTATION REFERRING PHYSICIAN: Ronaldo Wetzel M.D. HISTORY OF PRESENT ILLNESS: The patient is an 82-year-old white female with a past medical history of hypertension, non-insulin dependent diabetes mellitus, hypothyroidism, osteoporosis, severe kyphoscoliosis, admitted to [facility] status post mechanical fall down flight of stairs, sustaining a right ankle fracture. The patient denied any loss of consciousness, denied any chest pain or dizziness prior to episode. Apparently she was helping her at the time. She presented to the emergency room with the above. In the ER she was noted to have a right ankle fracture. She is evaluated by orthopedics and placed in a soft cast. Patient is to undergo ORIF in approximately 2 weeks. Patient therefore has history of severe kyphoscoliosis and according to the patient's daughter, she tends to get short of breath with exertion and occasionally at rest. History of smoking many years ago. There is no history of occupational exposure to chemicals or fumes. She denies any history of COPD or asthma in the past. There is no history of DVT or PE in the past. PAST MEDICAL HISTORY: Again includes hypertension, severe kyphoscoliosis, non-insulin dependent diabetes mellitus, hypothyroidism, osteoporosis. REVIEW OF SYSTEMS: Positive dyspnea. No chest pain. No palpitations. No cough. No hemoptysis. No abdominal pain. Positive ankle pain. CURRENT MEDICATIONS: Include Zofran, Tylenol, Cozaar, Lovenox, Toprol, Colace, Miralax, Novolog, oxycodone, Protonix, Synthroid. PHYSICAL EXAMINATION: General: The patient is an elderly white female, awake, alert, in no acute distress. Vital signs: She is currently afebrile. Blood pressure 108/63, respiratory rate 23, O2 saturation is 94% on nasal cannula. HEENT: Head is normocephalic, atraumatic. Neck: Supple. Heart: Regular. S1, S2. Chest: A few crackles at the right base. Abdomen: Soft. Bowel sounds positive. Extremities: No cyanosis, edema. LABORATORY: WBC is 12.1, hemoglobin 13.1, hematocrit 30, platelet count 195,000. Chemistries: BUN is 7, creatinine 0.6. Chest x-ray reveals scoliosis but no evidence of acute infiltrates and/or effusions. IMPRESSION: 1. Status post fall sustaining a right ankle fracture. 2. Dyspnea secondary to severe kyphoscoliosis. 3. Hypertension. 4. Osteoporosis. PLAN: O2. Would obtain O2 saturation prior to discharge on room air, consider arterial blood gases to see if patient is hypercapnic. Continue DVT prophylaxis. DELIA LASSITER M.D. [id number]
[2018-03-03] MEDS: ATORVASTATIN CA 20 MG TABLET (FP) PO SCH (21:43)
[2018-03-04] MEDS: oxyCODONE HCL 5 MG TABLET PO PRN ×3 (06:04→23:28)
[2018-03-04] MEDS: LEVOTHYROXINE NA 112 MCG TABLET (FP) PO SCH (06:05)
[2018-03-04] MEDS: NAPH,MB-DB/K PH,MBDB POWDER PACKET PO SCH ×3 (06:05→23:28)
[2018-03-04] MEDS: INSULIN SLIDING SCALE (NOVOLOG) 1 VIAL SQ SCH ×4 (06:16→23:33)
[2018-03-04] MEDS ORDERED: INSULIN (NOVOLOG) ASPART 100 UNITS/ML 10ML VIAL ONE ×2 (06:35→10:51)
[2018-03-04 07:19] LABS: BASO % 0.6 % (0-2.0); EOS % 0.4 % (0-4.5); HEMATOCRIT 38.5 % (32.4-45.2); HEMOGLOBIN 12.8 GM/dL (10.7-15.3); LYMPH % 6.6 % (8-40); MCH 30.1 pg (25.7-33.7); MCHC 33.4 g/dl (32.0-36.0); MEAN CELL VOLUME 90.3 fl (80-96); MEAN PLT VOLUME 7.6 fl (7.5-11.1); MONO % 7.6 % (3.8-10.2); NEUT % 84.8 % (42.8-82.8); PLATELET COUNT 213 K/MM3 (134-434); RBC 4.26 M/mm3 (3.60-5.2); RDW 12.9 % (11.6-15.6); WHITE BLOOD COUNT 15.3 K/mm3 (4.0-10.0)
--- NOTE | 2018-03-04 07:45 | OP ---
Operative Note - Note: Operative Date: 03/04/18 Pre-Operative Diagnosis: left ankle fracture Operation: left ankle open reduction internal fixation Implants: arthrex distal fibular plate Post-Operative Diagnosis: Same as Pre-op Surgeon: Eriberto Pinedo Anesthesia: Fractional Operative Report Dictated: Yes
[2018-03-04 07:53] LABS: ANION GAP 10 (8-16); BLOOD UREA NITROGEN 8 mg/dL (7-18); CALCIUM 8.2 mg/dL (8.5-10.1); CHLORIDE 102 mmol/L (98-107); CO2 28 mmol/L (21-32); CREATININE 0.6 mg/dL (0.55-1.02); GLUCOSE,RANDOM 142 mg/dL (74-106); MAGNESIUM 2.2 mg/dL (1.8-2.4); PHOSPHOROUS 2.4 mg/dL (2.5-4.9); POTASSIUM 3.8 mmol/L (3.5-5.1); SODIUM 140 mmol/L (136-145)
[2018-03-04] MEDS: DOCUSATE SODIUM 100 MG CAPSULE (FP) PO SCH ×2 (09:45→23:27)
[2018-03-04] MEDS: PANTOPRAZOLE 40 MG TABLET (FP) PO SCH (09:45)
[2018-03-04] MEDS: POLYETHYLENE GLYCOL 3350 119 GM BTL PO SCH ×2 (09:45→23:33)
[2018-03-04] MEDS: ENOXAPARIN NA (PORCINE) 40 MG/0.4 ML DISP.SYRIN SQ SCH (09:45)
[2018-03-04] MEDS: LOSARTAN POTASSIUM 25 MG TABLET PO SCH (09:45)
[2018-03-04] MEDS ORDERED: MAGNESIUM CITRATE 300 ML BOTTLE PO ONE (11:01)
--- NOTE | 2018-03-04 11:52 | PN ---
Progress Note (short form) - Note Progress Note: PULMONARY Denies shortness of breath or fevers. +occasional nonproductive cough. Last Vital Signs Temp Pulse Resp BP Pulse Ox 99.7 F H 102 H 20 130/73 94 L 03/04/18 06:00 03/04/18 06:00 03/04/18 06:00 03/04/18 06:00 03/02/18 21:00 Gen: NAD at rest Heart: RRR Lung: right base rales Abd: soft, nontender Ext: no edema CBC, BMP 03/04/18 06:20 03/04/18 06:20 Active Medications Acetaminophen (Tylenol -) 650 mg PO Q6H PRN PRN Reason: PAIN LEVEL 1 - 3 Last Admin: 03/03/18 16:49 Dose: 650 mg Atorvastatin Calcium (Lipitor -) 20 mg PO HS [facility] Last Admin: 03/03/18 21:43 Dose: 20 mg Docusate Sodium (Colace -) 100 mg PO BID [facility] Last Admin: 03/04/18 09:45 Dose: 100 mg Enoxaparin Sodium (Lovenox -) 40 mg SQ DAILY [facility] Last Admin: 03/04/18 09:45 Dose: 40 mg Insulin Aspart (Novolog Vial Sliding Scale -) 1 vial SQ ACHS [facility] PRN Reason: Protocol Last Admin: 03/04/18 10:56 Dose: 2 units Levothyroxine Sodium (Synthroid -) 112 mcg PO DAILY@0700 [facility] Last Admin: 03/04/18 06:05 Dose: 112 mcg Losartan Potassium (Cozaar -) 25 mg PO DAILY [facility] Last Admin: 03/04/18 09:45 Dose: 25 mg Metoprolol Succinate (Toprol Xl -) 50 mg PO DAILY [facility] Last Admin: 03/04/18 09:45 Dose: 50 mg Ondansetron HCl (Zofran Injection) 4 mg IVPUSH Q6H PRN PRN Reason: NAUSEA Last Admin: 03/02/18 18:18 Dose: 4 mg Oxycodone HCl (Roxicodone -) 5 mg PO Q4H PRN PRN Reason: PAIN LEVEL 4 - 6 Last Admin: 03/04/18 06:04 Dose: 5 mg Pantoprazole Sodium (Protonix -) 40 mg PO DAILY [facility] Last Admin: 03/04/18 09:45 Dose: 40 mg Polyethylene Glycol (Miralax (For Daily Use) -) 17 gm PO BID [facility] Last Admin: 03/04/18 09:45 Dose: 17 gm Potassium Phos/Sodium Phos (Phos-Nak Packet -) 1 packet PO TID [facility] Last Admin: 03/04/18 06:05 Dose: 1 packet A/P Atelectasis Severe Kyphoscoliosis s/p Fall R Ankle Fracture HTN DM - incentive spirometry - inhaled bronchodilators as needed - O2 as needed - DVT prophylaxis
--- NOTE | 2018-03-04 14:35 | PN ---
Progress Note, Physician Chief Complaint: Mrs Mullins complains of constipation. No cp, sob, n/v. - Current Medication List Current Medications: Active Medications Acetaminophen (Tylenol -) 650 mg PO Q6H PRN PRN Reason: PAIN LEVEL 1 - 3 Last Admin: 03/03/18 16:49 Dose: 650 mg Atorvastatin Calcium (Lipitor -) 20 mg PO HS [facility] Last Admin: 03/03/18 21:43 Dose: 20 mg Docusate Sodium (Colace -) 100 mg PO BID [facility] Last Admin: 03/04/18 09:45 Dose: 100 mg Enoxaparin Sodium (Lovenox -) 40 mg SQ DAILY [facility] Last Admin: 03/04/18 09:45 Dose: 40 mg Insulin Aspart (Novolog Vial Sliding Scale -) 1 vial SQ ACHS [facility] PRN Reason: Protocol Last Admin: 03/04/18 10:56 Dose: 2 units Levothyroxine Sodium (Synthroid -) 112 mcg PO DAILY@0700 [facility] Last Admin: 03/04/18 06:05 Dose: 112 mcg Losartan Potassium (Cozaar -) 25 mg PO DAILY [facility] Last Admin: 03/04/18 09:45 Dose: 25 mg Metoprolol Succinate (Toprol Xl -) 50 mg PO DAILY [facility] Last Admin: 03/04/18 09:45 Dose: 50 mg Ondansetron HCl (Zofran Injection) 4 mg IVPUSH Q6H PRN PRN Reason: NAUSEA Last Admin: 03/02/18 18:18 Dose: 4 mg Oxycodone HCl (Roxicodone -) 5 mg PO Q4H PRN PRN Reason: PAIN LEVEL 4 - 6 Last Admin: 03/04/18 06:04 Dose: 5 mg Pantoprazole Sodium (Protonix -) 40 mg PO DAILY [facility] Last Admin: 03/04/18 09:45 Dose: 40 mg Polyethylene Glycol (Miralax (For Daily Use) -) 17 gm PO BID [facility] Last Admin: 03/04/18 09:45 Dose: 17 gm Potassium Phos/Sodium Phos (Phos-Nak Packet -) 1 packet PO TID [facility] Last Admin: 03/04/18 06:05 Dose: 1 packet - Objective Vital Signs: Vital Signs Temperature 37.1 C 03/04/18 14:00 Pulse Rate 100 H 03/04/18 14:00 Respiratory Rate 21 03/04/18 14:00 Blood Pressure 126/68 03/04/18 14:00 O2 Sat by Pulse Oximetry (%) 96 03/04/18 08:00 Constitutional: Yes: Well Nourished, No Distress, Calm Cardiovascular: Yes: Regular Rate and Rhythm. No: Gallop, Murmur, Rub Respiratory: Yes: Regular, CTA Bilaterally. No: Rales, Rhonchi, Wheezes Gastrointestinal: Yes: Normal Bowel Sounds, Soft. No: Distention, Tenderness Extremities: Yes: Other (RLE in cast) Edema: No Labs: CBC, BMP 03/04/18 06:20 03/04/18 06:20 INR, PTT INR 0.97 (0.82-1.09) 03/01/18 04:14 Problem List - Problems (1) Nondisplaced comminuted fracture of shaft of right fibula Code(s): S82.454A - NONDISP COMMINUTED FRACTURE OF SHAFT OF RIGHT FIBULA, INIT Qualifiers: Encounter type: initial encounter Fracture type: closed Qualified Code(s) : S82.454A - Nondisplaced comminuted fracture of shaft of right fibula, initial encounter for closed fracture (2) Left patella fracture Code(s): S82.002A - UNSP FRACTURE OF LEFT PATELLA, INIT FOR CLOS FX Qualifiers: Encounter type: initial encounter Fracture type: closed Fracture morphology: longitudinal Fracture alignment: nondisplaced Qualified Code(s) : S82.025A - Nondisplaced longitudinal fracture of left patella, initial encounter for closed fracture (3) HTN (hypertension) Code(s): I10 - ESSENTIAL (PRIMARY) HYPERTENSION (4) HLD (hyperlipidemia) Code(s): E78.5 - HYPERLIPIDEMIA, UNSPECIFIED (5) Hypothyroid Code(s): E03.9 - HYPOTHYROIDISM, UNSPECIFIED (6) Nausea Code(s): R11.0 - NAUSEA (7) Constipation Code(s): K59.00 - CONSTIPATION, UNSPECIFIED (8) Shortness of breath Code(s): R06.02 - SHORTNESS OF BREATH Assessment/Plan (1) Nondisplaced comminuted fracture of shaft of right fibula Assessment/Plan: -ortho following -no urgent need for surgery -plan for ORIF in 2 weeks -Dr Pinedo to see today in follow up Code(s): S82.454A - NONDISP COMMINUTED FRACTURE OF SHAFT OF RIGHT FIBULA, INIT Qualifiers: Encounter type: initial encounter Fracture type: closed Qualified Code(s) : S82.454A - Nondisplaced comminuted fracture of shaft of right fibula, initial encounter for closed fracture (2) Left patella fracture Assessment/Plan: -no need for surgical intervention Code(s): S82.002A - UNSP FRACTURE OF LEFT PATELLA, INIT FOR CLOS FX Qualifiers: Encounter type: initial encounter Fracture type: closed Fracture morphology: longitudinal Fracture alignment: nondisplaced Qualified Code(s) : S82.025A - Nondisplaced longitudinal fracture of left patella, initial encounter for closed fracture (3) HTN (hypertension) Assessment/Plan: -continue toprol xl and cozaar -improved today Code(s): I10 - ESSENTIAL (PRIMARY) HYPERTENSION (4) HLD (hyperlipidemia) Assessment/Plan: -continue statin Code(s): E78.5 - HYPERLIPIDEMIA, UNSPECIFIED (5) Hypothyroid Assessment/Plan: -continue synthroid Code(s): E03.9 - HYPOTHYROIDISM, UNSPECIFIED (6) Nausea Assessment/Plan: -resolved Code(s): R11.0 - NAUSEA (7) Constipation Assessment/Plan: -continue miralax and colace -add magnesium citrate Code(s): K59.00 - CONSTIPATION, UNSPECIFIED (8) Shortness of breath Assessment/Plan: -consult pulmonary for clearance in preparation of surgery in 2 weeks -encouraged I/S Code(s): R06.02 - SHORTNESS OF BREATH Dispo -plan for discharge after BM
--- NOTE | 2018-03-04 18:10 | PN ---
Progress Note (short form) - Note Progress Note: Pt lying comf in bed. Last Vital Signs Temp Pulse Resp BP Pulse Ox 98.7 F 100 H 21 126/68 96 03/04/18 14:00 03/04/18 14:00 03/04/18 14:00 03/04/18 14:00 03/04/18 08:[address] ehl fhl intact sens int to LT Cr<2 LLE tender patella mild swelling comfortable arc of motion NVID A/p R ankle fracture L patella fracture For ankle: -will continue NWB -will follow up in office Thursday -will plan for surgery in 1-2 weeks For knee: -continue wbat for transfers -ok for ROM -no need for surgery
[2018-03-04] MEDS: ATORVASTATIN CA 20 MG TABLET (FP) PO SCH (23:28)
[2018-03-05] MEDS: LEVOTHYROXINE NA 112 MCG TABLET (FP) PO SCH (05:59)
[2018-03-05] MEDS: NAPH,MB-DB/K PH,MBDB POWDER PACKET PO SCH (05:59)
[2018-03-05] MEDS: INSULIN SLIDING SCALE (NOVOLOG) 1 VIAL SQ SCH ×2 (05:59→11:55)
[2018-03-05] MEDS: oxyCODONE HCL 5 MG TABLET PO PRN ×2 (06:02→12:53)
[2018-03-05 08:52] LABS: BASO % 0.7 % (0-2.0); EOS % 1.5 % (0-4.5); HEMATOCRIT 35.3 % (32.4-45.2); HEMOGLOBIN 12.1 GM/dL (10.7-15.3); LYMPH % 9.5 % (8-40); MCH 30.9 pg (25.7-33.7); MCHC 34.3 g/dl (32.0-36.0); MEAN CELL VOLUME 90.1 fl (80-96); MEAN PLT VOLUME 7.8 fl (7.5-11.1); MONO % 10.1 % (3.8-10.2); NEUT % 78.2 % (42.8-82.8); PLATELET COUNT 232 K/MM3 (134-434); RBC 3.92 M/mm3 (3.60-5.2); RDW 13.2 % (11.6-15.6); WHITE BLOOD COUNT 10.1 K/mm3 (4.0-10.0)
[2018-03-05 08:54] LABS: CHLORIDE 97 mmol/L (98-107); POTASSIUM 4.1 mmol/L (3.5-5.1); SODIUM 136 mmol/L (136-145)
[2018-03-05 09:00] LABS: ANION GAP 8 (8-16); BLOOD UREA NITROGEN 13 mg/dL (7-18); CALCIUM 7.7 mg/dL (8.5-10.1); CO2 31 mmol/L (21-32); CREATININE 0.6 mg/dL (0.55-1.02); GLUCOSE,RANDOM 152 mg/dL (74-106); MAGNESIUM 2.6 mg/dL (1.8-2.4); PHOSPHOROUS 2.3 mg/dL (2.5-4.9)
[2018-03-05] MEDS: LOSARTAN POTASSIUM 25 MG TABLET PO SCH (10:22)
[2018-03-05] MEDS: PANTOPRAZOLE 40 MG TABLET (FP) PO SCH (10:22)
[2018-03-05] MEDS: ENOXAPARIN NA (PORCINE) 40 MG/0.4 ML DISP.SYRIN SQ SCH (10:22)
[2018-03-05] MEDS: POLYETHYLENE GLYCOL 3350 119 GM BTL PO SCH (10:23)
[2018-03-05] MEDS: DOCUSATE SODIUM 100 MG CAPSULE (FP) PO SCH (10:23)
[2018-03-05 10:34] VITALS: BP 133/67; PULSE 92; TEMP 98.2
--- NOTE | 2018-03-05 10:43 | DS ---
Physical Examination Vital Signs: Vital Signs Temperature 36.8 C 03/05/18 10:00 Pulse Rate 92 H 03/05/18 10:00 Respiratory Rate 20 03/05/18 10:00 Blood Pressure 133/67 03/05/18 10:00 O2 Sat by Pulse Oximetry (%) 97 03/04/18 21:00 Constitutional: Yes: Well Nourished, No Distress, Calm Cardiovascular: Yes: Regular Rate and Rhythm. No: Gallop, Murmur, Rub Respiratory: Yes: Regular, CTA Bilaterally. No: Rales, Rhonchi, Wheezes Gastrointestinal: Yes: Normal Bowel Sounds, Soft. No: Distention, Tenderness Extremities: Yes: WNL Edema: No Labs: CBC, BMP 03/05/18 08:10 03/05/18 08:10 Discharge Summary Reason For Visit: NONDISPLACED COMMINUTED FRACTURE OF SHAFT L TIBIA Current Active Problems Constipation (Acute) HLD (hyperlipidemia) (Acute) HTN (hypertension) (Acute) Hypothyroid (Acute) Left patella fracture (Acute) Nausea (Acute) Nondisplaced comminuted fracture of shaft of left tibia (Acute) Nondisplaced comminuted fracture of shaft of right fibula (Acute) Scoliosis (and kyphoscoliosis), idiopathic (Acute) Shortness of breath (Acute) Hospital Course: (1) Nondisplaced comminuted fracture of shaft of right fibula Code(s): S82.454A - NONDISP COMMINUTED FRACTURE OF SHAFT OF RIGHT FIBULA, INIT Qualifiers: Encounter type: initial encounter Fracture type: closed Qualified Code(s) : S82.454A - Nondisplaced comminuted fracture of shaft of right fibula, initial encounter for closed fracture (2) Left patella fracture Code(s): S82.002A - UNSP FRACTURE OF LEFT PATELLA, INIT FOR CLOS FX Qualifiers: Encounter type: initial encounter Fracture type: closed Fracture morphology: longitudinal Fracture alignment: nondisplaced Qualified Code(s) : S82.025A - Nondisplaced longitudinal fracture of left patella, initial encounter for closed fracture (3) HTN (hypertension) Code(s): I10 - ESSENTIAL (PRIMARY) HYPERTENSION (4) HLD (hyperlipidemia) Code(s): E78.5 - HYPERLIPIDEMIA, UNSPECIFIED (5) Hypothyroid Code(s): E03.9 - HYPOTHYROIDISM, UNSPECIFIED (6) Nausea Code(s): R11.0 - NAUSEA (7) Constipation Code(s): K59.00 - CONSTIPATION, UNSPECIFIED (8) Shortness of breath Code(s): R06.02 - SHORTNESS OF BREATH Ms Mullins is a very pleasant 82 year old female who comes in s/p fall and found to have an ankle fracture. She was admitted to the hospital and seen by orthopedic surgery. She was reduced and evaluated, it was decided to allow some healing and she will return in 2 weeks for ORIF. She has chronic SOB and pulmonary was consulted for clearance. She was otherwise continued on her home regimen. She had constipation and this was treated. She will be discharged with a ibarra catheter since she cannot ambulate, this will be addressed at the SNF. Patient is safe for discharge to SNF. 32 minutes spent in preparation of this discharge Condition: Good - Instructions Diet, Activity, Other Instructions: Regular diet. Continue NWB on RLE. Continue PT at SNF. Will discharge with ibarra , evaluate if can be removed TARA. Referrals: Yang Hess MD [Primary Care Provider] - Haris Ardon MD [Staff Physician] - Eriberto Pinedo MD [Staff Physician] - Disposition: [facility] - Home Medications Comprehensive Discharge Medication List: Ambulatory Orders Atorvastatin Ca [Lipitor] 20 mg PO HS 03/01/18 B12/Levomefolate Calcium/B-6 [Folbic Rf Tablet] 1 each PO DAILY 03/01/18 Cholecalciferol (Vitamin D3) [Vitamin D -] 1,000 unit PO DAILY 03/01/18 Levothyroxine [Synthroid -] 112 mcg PO DAILY 03/01/18 Losartan Potassium [Cozaar] 25 mg PO DAILY 03/01/18 Metoprolol Succinate [Toprol XL -] 50 mg PO DAILY 03/01/18 Hamilton-3/Dha/Epa/Fish Oil [Fish Oil 500 mg Softgel] 1 each PO DAILY 03/01/18 Pantoprazole Sodium [Protonix] 40 mg PO DAILY 03/01/18 Sitagliptin Phosphate [Januvia] 100 mg PO DAILY 03/01/18 Acetaminophen [Tylenol .Regular Strength -] 650 mg PO Q6H PRN tablet 03/05/18 Docusate Sodium [Colace -] 100 mg PO BID capsule 03/05/18 Enoxaparin [Lovenox -] 40 mg SQ DAILY disp.syrin 03/05/18 Polyethylene Glycol 3350 [Miralax 119 gm Btl -] 17 gm PO BID bottle 03/05/18 oxyCODONE HCL [Roxicodone -] 5 mg PO Q4H PRN tablet MDD 60mg 03/05/18
[2018-03-05] MEDS ORDERED: INSULIN (NOVOLOG) ASPART 100 UNITS/ML 10ML VIAL ONE (11:54)
== END 2018-03-05 13:50 | DRG 563 ==
LOC: JER 01:48 → JERBED 03:57 → J6S 05:38
PROVIDERS: ADMIT Specialist; ATTEND Internal Medicine
PROC: 0SSFXZZ Reposition Right Ankle Joint, External Approach (ICD-10-PCS; principal; 2018-03-01)
DX: S82.255A Nondisplaced comminuted fracture of shaft of left tibia, initial encounter for closed fracture (principal); S82.025A Nondisplaced longitudinal fracture of left patella, initial encounter for closed fracture; J98.11 Atelectasis; S82.454A Nondisplaced comminuted fracture of shaft of right fibula, initial encounter for closed fracture; I10 Essential (primary) hypertension; E03.9 Hypothyroidism, unspecified; E11.9 Type 2 diabetes mellitus without complications; W10.8XXA Fall (on) (from) other stairs and steps, initial encounter; Y93.K1 Activity, walking an animal; Y92.038 Other place in apartment as the place of occurrence of the external cause; Y99.8 Other external cause status; M81.0 Age-related osteoporosis without current pathological fracture; M41.9 Scoliosis, unspecified; Z87.891 Personal history of nicotine dependence; K59.00 Constipation, unspecified; M41.20 Other idiopathic scoliosis, site unspecified; R11.0 Nausea; E78.5 Hyperlipidemia, unspecified
CPT/HCPCS: 36415; 36600; 71045-TC-FY; 73560-TC-LT-FY; 73590-TC-RT-FY; 73610-TC-RT-FY; 73630-TC-RT-FY; 80048; 80053; 82803; 82962; 83735; 84100; 85025; 85610; 85730; 86850; 86900; 86901; 93005; 93010; 94010; 97161-GP; 99282-25; J7030

== ENCOUNTER 2018-03-12 21:07 | Emergency (ER) | payer OTHER, BC ==
--- NOTE | 2018-03-12 22:22 | PDOC ---
Attending Attestation - Resident Resident Name: Julius Langford - ED Attending Attestation I have performed the following: I have examined & evaluated the patient, The case was reviewed & discussed with the resident, I agree w/resident's findings & plan - HPI HPI: 03/13/18 06:33 Pt sent from [facility] for eval. She is being treated for a UTI and today she was complaining of flank pain. She was sent for workup and imaging. Labs and BUN/Cr normal. CT shows no nephrolithiasis. Pt is stable. WBC and rest of labs normal. Afebrile at this time. Stable or d/c / back to the [facility]. - Physicial Exam PE: 03/13/18 06:35 Agree with resident exam - Medical Decision Making 03/13/18 06:36 Back to the [facility] with antibiotics. Stable to return to the [facility] <Arianna Soriano - Last Filed: 03/13/18 06:36> Heart Score/ECG Review - ECG Intrepretation Comment:: 03/13/18 00:12 Completed @23:13:46 Normal Sinus rhythm Normal ECG Vent. rate 74 bpm OK interval 178 ms QRS duration 70 ms <Talon Solomon - Last Filed: 03/13/18 00:11>
--- NOTE | 2018-03-12 22:29 | PDOC ---
History of Present Illness - General Chief Complaint: Revisit, Lab Variance Stated Complaint: ABNORMAL LABS Time Seen by Provider: 03/12/18 21:57 History Source: Patient Exam Limitations: No Limitations - History of Present Illness Initial Comments: 03/12/18 22:23 Patient is an 83F with history of HTN, DM, HLD, osteoporosis, R ankle fracture and left patella fracture here today from [facility] with white blood cell count of 15 and a positive UA. Patient has been at [facility] for rehab for ankle fracture in preparation for ORIF next week. Patient denies difficulty and pain with urination. Denies fevers, chills, nausea, vomiting. Denies chest pain, states that shortness of breath is at baseline. Denies headache and neck pain. Past History - Past Medical History Allergies/Adverse Reactions: Allergies Allergy/AdvReac Type Severity Reaction Status Date / Time No Known Allergies Allergy Verified 03/12/18 22:07 Home Medications: Ambulatory Orders Atorvastatin Ca [Lipitor] 20 mg PO HS 03/01/18 B12/Levomefolate Calcium/B-6 [Folbic Rf Tablet] 1 each PO DAILY 03/01/18 Cholecalciferol (Vitamin D3) [Vitamin D -] 1,000 unit PO DAILY 03/01/18 Levothyroxine [Synthroid -] 112 mcg PO DAILY 03/01/18 Losartan Potassium [Cozaar] 25 mg PO DAILY 03/01/18 Metoprolol Succinate [Toprol XL -] 50 mg PO DAILY 03/01/18 [place]-3/Dha/Epa/Fish Oil [Fish Oil 500 mg Softgel] 1 each PO DAILY 03/01/18 Pantoprazole Sodium [Protonix] 40 mg PO DAILY 03/01/18 Sitagliptin Phosphate [Januvia] 100 mg PO DAILY 03/01/18 Acetaminophen [Tylenol .Regular Strength -] 650 mg PO Q6H PRN tablet 03/05/18 Docusate Sodium [Colace -] 100 mg PO BID capsule 03/05/18 Enoxaparin [Lovenox -] 40 mg SQ DAILY disp.syrin 03/05/18 Polyethylene Glycol 3350 [Miralax 119 gm Btl -] 17 gm PO BID bottle 03/05/18 oxyCODONE HCL [Roxicodone -] 5 mg PO Q4H PRN tablet MDD 60mg 03/05/18 COPD: No Diabetes: Yes HTN: Yes Thyroid Disease: Yes (Hyperthyrodism) - Immunization History Immunization Up to Date: Yes - Suicide/Smoking/Psychosocial Hx Smoking History: Never smoked Have you smoked in the past 12 months: No If you are a former smoker, when did you quit?: 33 years ago Information on smoking cessation initiated: No Hx Alcohol Use: No Drug/Substance Use Hx: No Review of Systems - Review of Systems Able to Perform ROS?: Yes Comments:: 03/12/18 22:34 GENERAL/CONSTITUTIONAL: No fever or chills. No weakness. HEAD, EYES, EARS, NOSE AND THROAT: No change in vision. No sore throat. CARDIOVASCULAR: No chest pain or shortness of breath RESPIRATORY: No cough, wheezing, or hemoptysis. GASTROINTESTINAL: No nausea, vomiting, diarrhea or constipation. GENITOURINARY: No dysuria, frequency, or change in urination. MUSCULOSKELETAL: Positive for right leg pain. No neck or back pain. SKIN: No rash NEUROLOGIC: No headache, vertigo, loss of consciousness, or change in strength/ sensation. ENDOCRINE: No increased thirst. No abnormal weight change ALLERGIC/IMMUNOLOGIC: No hives or skin allergy. *Physical Exam - Vital Signs Last Vital Signs Temp Pulse Resp BP Pulse Ox 97.7 F 74 19 130/65 97 03/12/18 22:02 03/12/18 22:02 03/12/18 22:02 03/12/18 22:02 03/12/18 22:02 - Physical Exam Comments: 03/12/18 22:34 GENERAL: Awake, alert, and fully oriented, in no acute distress HEAD: No signs of trauma, normocephalic, atraumatic EYES: PERRLA, EOMI, sclera anicteric, conjunctiva clear ENT: Auricles normal inspection, hearing grossly normal, nares patent, oropharynx clear without exudates. Moist mucosa NECK: Normal ROM, supple, no lymphadenopathy, JVD, or masses LUNGS: No distress, speaks full sentences, clear to auscultation bilaterally HEART: Regular rate and rhythm, normal S1 and S2, no murmurs, rubs or gallops, peripheral pulses normal and equal bilaterally. ABDOMEN: Soft, +CVA tenderness, no guarding no rebound. EXTREMITIES: Splinted right leg, Normal range of motion, no edema. No clubbing or cyanosis. NEUROLOGICAL: Cranial nerves II through XII grossly intact. Normal speech, normal gait, no focal sensorimotor deficits SKIN: Warm, Dry, normal turgor, no rashes or lesions noted. ED Treatment Course - LABORATORY CBC & Chemistry Diagram: 03/12/18 23:16 03/12/18 23:16 - RADIOLOGY Radiology Studies Ordered: Category Date Time Status CHEST X-RAY PORTABLE* [RAD] Stat Radiology 03/12/18 22:10 Ordered Medical Decision Making - Medical Decision Making 03/12/18 22:35 Patient is an 83F with history of HTN, DM, osteoporosis, right ankle fracture, left patella fracture is here today complaining of lab variance. Found to have CVA tenderness. Like has pyleo. Will workup with cbc, cmp, pt/inr, lactate, blood cultures, ua, uc, spiral ct. Vital signs stable. Will likely cover with ceftriaxone. 03/13/18 01:47 CBC shows white count of 11, down from 17. UA shows no obvious UTI. CMP reassuring. Lactate negative. CXR shows no acute process. CT abd/pelvis shows no acute process. Patient already taking augmentin at [facility]. Patient has required no oxygen and respiratory status is stable. Patient's treatment appears to be working. Will discharge home with instructions to continue to take augmentin. *DC/Admit/Observation/Transfer Diagnosis at time of Disposition: UTI (urinary tract infection) - Discharge Dispostion Disposition: HOME Condition at time of disposition: Good Decision to Admit order: No - Referrals Referrals: Gray Ku MD [Primary Care Provider] - - Patient Instructions Printed Discharge Instructions: DI for Urinary Tract Infection (UTI) Additional Instructions: You were seen today in the ED for a possible UTI. It appears that your antibiotics are working well. Please return if you have any new, worsening or concerning symptoms. - Post Discharge Activity
[2018-03-12 22:33] VITALS: BP 130/65; PULSE 74; TEMP 97.7; BMI 23.8
[2018-03-12 23:35] LABS: BASO % 1.2 % (0-2.0); EOS % 1.2 % (0-4.5); HEMATOCRIT 37.9 % (32.4-45.2); LYMPH % 13.5 % (8-40); MCH 31.2 pg (25.7-33.7); MCHC 34.4 g/dl (32.0-36.0); MEAN CELL VOLUME 90.7 fl (80-96); MEAN PLT VOLUME 7.4 fl (7.5-11.1); MONO % 8.9 % (3.8-10.2); NEUT % 75.2 % (42.8-82.8); PLATELET COUNT 381 K/MM3 (134-434); RBC 4.17 M/mm3 (3.60-5.2); RDW 13.4 % (11.6-15.6); WHITE BLOOD COUNT 11.7 K/mm3 (4.0-10.0)
[2018-03-13 00:02] LABS: INR 0.96 (0.82-1.09); PROTHROMBIN TIME (PATIENT) 10.9 SEC (9.7-13.0)
[2018-03-13 00:03] LABS: ALBUMIN 3.9 g/dl (3.4-5.0); ANION GAP 11 (8-16); BILIRUBIN,TOTAL 0.5 mg/dL (0.2-1.0); BLOOD UREA NITROGEN 19 mg/dL (7-18); CALCIUM 9.7 mg/dL (8.5-10.1); CHLORIDE 94 mmol/L (98-107); CO2 30 mmol/L (21-32); CREATININE 0.6 mg/dL (0.55-1.02); GLUCOSE,RANDOM 136 mg/dL (74-106); POTASSIUM 4.1 mmol/L (3.5-5.1); SGOT/AST 17 U/L (15-37); SGPT/ALT 28 U/L (12-78); SODIUM 135 mmol/L (136-145); TOT PROT 7.5 g/dl (6.4-8.2)
[2018-03-13 00:04] LABS: ALK PHOS 105 U/L (45-117)
[2018-03-13 00:29] LABS: URINE APPEARANCE CLEAR; URINE BILIRUBIN NEGATIVE (<2.0 mg/dL); URINE COLOR LTYELLOW; URINE GLUCOSE (UA) 1+ (NEGATIVE); URINE KETONE NEGATIVE (NEGATIVE); URINE LEUK ESTERASE TRACE (NEGATIVE); URINE NITRITE NEGATIVE (NEGATIVE); URINE PROTEIN NEGATIVE (NEGATIVE); URINE UROBILINOGEN NEGATIVE mg/dL (0.2-1.0)
[2018-03-13 00:56] LABS: URINE BACTERIA RARE /hpf (NONE SEEN)
--- NOTE | 2018-03-13 09:20 | EKG ---
Test Reason : Blood Pressure : / mmHG Vent. Rate : 074 BPM Atrial Rate : 074 BPM P-R Int : 178 ms QRS Dur : 070 ms QT Int : 406 ms P-R-T Axes : 068 035 042 degrees QTc Int : 450 ms NORMAL SINUS RHYTHM NORMAL ECG WHEN COMPARED WITH ECG OF 01-MAR-2018 03:01, NO SIGNIFICANT CHANGE WAS FOUND Confirmed by ENIO CONNORS MD ([id number]) on 03/13/2018 9:20:02 AM Referred By: Confirmed By:ENIO CONNORS MD
== END 2018-03-13 03:33 ==
LOC: JER 21:07
DX: N39.0 Urinary tract infection, site not specified (principal); E11.9 Type 2 diabetes mellitus without complications; Z79.84 Long term (current) use of oral hypoglycemic drugs; I10 Essential (primary) hypertension; E05.90 Thyrotoxicosis, unspecified without thyrotoxic crisis or storm; Z87.81 Personal history of (healed) traumatic fracture
CPT/HCPCS: 36415; 71045-TC-FY; 74176; 80053; 81003; 81015; 83605; 84484; 85025; 85610; 85730; 87040; 87086; 93005; 93010; 99281-25

== ENCOUNTER 2018-03-18 09:37 | Day surgery (SDC) | payer OTHER, BC ==
[2018-03-16 11:07] VITALS: BMI 23.8
[2018-03-18] MEDS ORDERED: BUPIVACAINE HCL/PF (5 MG/ML) 30 ML VIAL IJ ONE (11:17)
[2018-03-18] MEDS ORDERED: MIDAZOLAM HCL 2 MG/2 ML SINGLE DOSE VIAL ONE ×4 (11:17→14:26)
[2018-03-18] MEDS ORDERED: DEXAMETHASONE SOD PHOSPHATE/PF 10 MG/ML SDV ONE (11:17)
[2018-03-18] MEDS ORDERED: ceFAZolin SODIUM 1 GM VIAL ONE (12:32)
[2018-03-18] MEDS ORDERED: METOPROLOL TARTRATE 5 MG/5 ML VIAL ONE (14:35)
[2018-03-18] MEDS ORDERED: oxyCODONE HCL 5 MG TABLET PO PRN (14:37)
--- NOTE | 2018-03-18 15:30 | OP ---
Operative Note - Note: Operative Date: 03/18/18 Pre-Operative Diagnosis: right ankle fracture, trimalleolar Operation: open reduction and internal fixation of right trimalleolar fracture Implants: arthrex posterolateral distal fibular plate with 2.7mm and 3.5mm screws. arthrex posterior distal tibia plate with 2.7mm and 3.5mm screws Post-Operative Diagnosis: Same as Pre-op Surgeon: Eriberto Pinedo [employer] Manager: Grover Anne Anesthesiologist/INVESTIGATOR FRAUD: Maida Shrestha Anesthesia: Spinal, Fractional Estimated Blood Loss (mls): 20 Operative Report Dictated: Yes
--- NOTE | 2018-03-18 16:22 | OP ---
DATE OF OPERATION: 03/18/2018 PREOPERATIVE DIAGNOSIS: Right ankle trimalleolar fracture. POSTOPERATIVE DIAGNOSIS: Right ankle trimalleolar fracture. PROCEDURE: Right ankle open reduction internal fixation. SURGEON: Eriberto Pinedo M.D. BLEACH TESTER: Munira Wynn Also, a podiatry student was present to observe. IMPLANTS: Arthrex distal fibular plate with 3.5 mm and 2.7 mm screws as well as posterior tibial plate, with 3.5 cortical and 2.7 mm locking screws. BLOOD LOSS: 20 mL. POSTOPERATIVE CONDITION: Stable. COMPLICATIONS: None. TOURNIQUET TIME: 1.5 hours. INDICATION: This is a pleasant woman who has suffered an ankle fracture dislocation. She initially underwent closed reduction and was splinted to allow for resolution of swelling. After the swelling had improved, she was indicated for open reduction internal fixation. Treatment options including nonoperative care with malunion and post-traumatic arthritis risks were discussed. We recommended operative care. I reviewed operative risks in detail including bleeding, infection, neurovascular injury, and the need for further surgery, postoperative pain and stiffness, nonunion, malunion, hardware failure, cutout. We discussed medical risks such as heart attack, stroke, DVT, PE, and . I answered patient's questions and concerns. She voiced understanding and elected to proceed. It should be noted that the patient's family including her daughter and her were also informed of the procedure and risks, benefits, and alternatives. DESCRIPTION OF PROCEDURE: Patient was brought to the operating room where spinal anesthesia was administered. She was given a preoperative block in the holding area. The patient was placed in the prone position while still awake, careful to pad all the bony prominences. The right lower extremity was then prepped and draped in the usual sterile fashion. The preoperative dose of antibiotics is given, and the usual timeout procedure was performed. At this oint, an incision was made in the midline between the Achilles tendon and posterior fibular border. This is carried down through skin and subcutaneous tissue. Blunt spreading was used to expose the fascia over the peroneals. The fascia was then split along its fibers. The peroneals were now mobilized medially. The soft tissue was now sharply elevated off the posterior aspect of the fibula to expose the fracture site. A significant amount of comminution was noted to be present. The fracture ends were debrided of any soft callus. The fibula was now reduced using 2 fracture reduction forceps into an anatomic reduction. A 2-mm K-wire was used to hold the temporary reduction. The posterolateral fibula plate was now applied and fixed initially distally using the 2.7 locking screws. It was then fixed proximally, first using cortical screw, and then 3 additional locking screws. At this point, the entire construct was examined both visually and fluoroscopy. Both fascial reduction and hardware placement were satisfactory. Attention was now turned toward the tibial window of this approach. The FHL was somewhat macerated secondary to the previous dislocation. On exposing this, bleeding was encountered, and therefore the limb was exsanguinated, tourniquet was inflated to 250 mmHg. The posterior fragment was now freed. Any soft callus was removed from the site, and it was irrigated. The FHL was mobilized medially. Initially, it was attempted to hold the fragment in place with a K-wire; however , the bone was too soft, and reduction was not maintained. Decision was now used to use the plate for the reduction. Plate was applied, utilizing the most distal round hole. The long hole would have been more ideal; however, it was an open fracture site, and no fixation was possible here. The plate was fixed distally utilizing 3 short locking screws into the distal fragment. The cortical screw was then tightened down, reducing fragments in place; however, the screws were limiting the amount of reduction present, so these were now removed. Before removal of the screws, the fragment was back in near anatomic alignment. Proximally, 2 additional locking screws were inserted to secure the fixation to the cortical bone. Distally, 2 of the distal screws were inserted to maintain the fixation. At this point, the entire construct was examined visually as well as fluoroscopically. Both fracture reduction hardware plates were satisfactory. Wounds were copiously irrigated. The wounds were copiously irrigated. Subcutaneous tissue was approximated using 3-0 Vicryl. The skin was closed using interrupted mattress 4-0 nylon. A VAC dressing was placed. Patient was placed into the splint. She was transferred to recovery room in stable condition. It should be noted the tourniquet was let down upon completion of the case. Zackary [id number] MTDDaniel
[2018-03-18] MEDS ORDERED: ACETAMINOPHEN 325 MG TABLET (FP) PO PRN (16:26)
[2018-03-18] MEDS ORDERED: ONDANSETRON 4 MG/2 ML VIAL IVPUSH PRN (16:28)
[2018-03-18] MEDS ORDERED: LACTATED RINGERS SOLUTION 1,000 ML IV SCH (16:30)
[2018-03-18 17:07] VITALS: TEMP 97.8
[2018-03-18] MEDS: oxyCODONE HCL 5 MG TABLET PO PRN ×2 (18:35→22:14)
[2018-03-18] MEDS: DOCUSATE SODIUM 100 MG CAPSULE (FP) PO SCH (21:14)
[2018-03-18] MEDS: AMOX TR/POT CLAV 500MG/125MG TABLETS (FP) PO SCH (21:14)
[2018-03-18] MEDS: POLYETHYLENE GLYCOL 3350 119 GM BTL PO SCH (21:15)
[2018-03-18] MEDS ORDERED: ATORVASTATIN CA 20 MG TABLET (FP) PO SCH (22:00)
[2018-03-19] MEDS: AMOX TR/POT CLAV 500MG/125MG TABLETS (FP) PO SCH (06:20)
[2018-03-19 06:27] VITALS: BP 129/54; PULSE 87
[2018-03-19] MEDS ORDERED: LEVOTHYROXINE NA 112 MCG TABLET (FP) PO SCH (07:00)
[2018-03-19] MEDS ORDERED: sitaGLIPtin PHOSPHATE 50 MG TABLET PO SCH (07:45)
[2018-03-19] MEDS: POLYETHYLENE GLYCOL 3350 119 GM BTL PO SCH (09:40)
[2018-03-19] MEDS: DOCUSATE SODIUM 100 MG CAPSULE (FP) PO SCH (09:40)
[2018-03-19] MEDS ORDERED: LOSARTAN POTASSIUM 25 MG TABLET PO SCH (10:00)
[2018-03-19] MEDS ORDERED: CHOLECALCIFEROL (VITAMIN D3) 1,000 UNIT TABLET (FP) PO SCH (10:00)
[2018-03-19] MEDS ORDERED: ENOXAPARIN NA (PORCINE) 40 MG/0.4 ML DISP.SYRIN SQ SCH (10:00)
[2018-03-19] MEDS ORDERED: PANTOPRAZOLE 40 MG TABLET (FP) PO SCH (10:00)
[2018-03-19] MEDS ORDERED: PATIENT'S OWN MEDICATION (NON-FORMULARY) (Omega-3/Dha/Epa/Fish Oil [Fish Oil 500 Mg Softge PO SCH (10:00)
--- NOTE | 2018-03-19 12:56 | PN ---
Progress Note (short form) - Note Progress Note: Anesthesia PostOp 83 yo female POD #1 s/p Ankle ORIF S: Patient sitting in bed, eating, without pain O: VSS, sensation present ant and post leg, minimal sensation medial and lateral foot. Some sensation at heel. A/P: patient with signs of continued block from popliteal block performed 24 hours prior. Reassured patient the block may last up to 36 hours. Continue to monitor. If it does not resolve by 36 hours, she should report that to care team at outside institution (pending transfer).
[2018-03-19] MEDS: oxyCODONE HCL 5 MG TABLET PO PRN (16:12)
== END 2018-03-19 17:12 ==
LOC: FASU 09:37 → FM/S 16:56 → FASU 03-19 17:12
PROVIDERS: ATTEND Orthopaedic Surgery Sports Medicine
PROC: 0QSG04Z Reposition Right Tibia with Internal Fixation Device, Open Approach (ICD-10-PCS; 2018-03-18)
PROC: 0QSG04Z Reposition Right Tibia with Internal Fixation Device, Open Approach (ICD-10-PCS; 2018-03-18)
PROC: 0QSJ04Z Reposition Right Fibula with Internal Fixation Device, Open Approach (ICD-10-PCS; principal; 2018-03-18 12:45)
DX: S82.851A Displaced trimalleolar fracture of right lower leg, initial encounter for closed fracture (principal); X58.XXXA Exposure to other specified factors, initial encounter; Y93.9 Activity, unspecified; Y92.9 Unspecified place or not applicable
CPT/HCPCS: 73610-TC-RT-FY; 82962; 94760